=== PATIENT | female | born 1980 | race Caucasian/White ===

== ENCOUNTER → 2018-09-14 | Outpatient (CLI) | payer BC | END | disposition home or self-care (01) | LOC: LAB 07:18 | PROVIDERS: ATTEND Obstetrics & Gynecology Obstetrics | DX: O09.519 Supervision of elderly primigravida, unspecified trimester (principal); Z3A.00 Weeks of gestation of pregnancy not specified | CPT/HCPCS: 36415; 82947; 82950 ==

== ENCOUNTER 2018-12-08 13:10 | Observation (INO) | payer BC ==
[~2018-12-08] VITALS: Ht 154.9 cm; Wt 128.4 kg
[2018-12-08 14:46] LABS: BASOPHILS % 0.6 % (0.0-2.0); EOSINOPHILS % 1.6 % (0.0-5.0); HEMATOCRIT. 36.8 % (36.0-48.0); HEMOGLOBIN. 12.1 g/dL (12.0-16.0); LYMPHOCYTES % 33.5 % (20.0-50.0); MEAN CORPUSCULAR HEMOGLOBIN 25.5 pg (28.0-32.0); MEAN CORPUSCULAR VOLUME 77.5 fL (81.0-99.0); MEAN PLATELET VOLUME 9.4 fl (7.4-10.4); MONOCYTES % 6.1 % (2.0-8.0); NEUTROPHILS % 58.2 % (40.0-76.0); PLATELET 206 x1000/uL (130-400); RED BLOOD CELL COUNT 4.76 mill/uL (4.2-5.4); RED CELL DISTRIBUTION WIDTH 16.4 % (11.6-14.6)
[2018-12-08 14:50] LABS: CLARITY URINE CLEAR (CLEAR); COLOR URINE YELLOW (YELLOW); KETONES URINE NEGATIVE (NEGATIVE); LEUKOCYTE ESTERASE URINE 1+ (NEGATIVE); NITRITE URINE NEGATIVE (NEGATIVE); OCCULT BLOOD URINE NEGATIVE (NEGATIVE); PROTEIN URINE NEGATIVE (NEGATIVE); SPECIFIC GRAVITY URINE 1.016 (1.005-1.030); UROBILINOGEN URINE 0.2 E.U./dL (0.2-1.0)
[2018-12-08 14:52] LABS: CHLORIDE 107 mEq/L (98-107)
[2018-12-08 15:00] LABS: PARTIAL THROMBOPLASTIN TIME 26.5 sec (23.4-31.0); PROTHROMBIN TIME 10.3 sec (9.6-11.0)
== END 2018-12-08 16:45 | disposition home or self-care (01) ==
LOC: 8 EST LDRP 13:10
PROVIDERS: ADMIT Obstetrics & Gynecology Obstetrics; ATTEND Obstetrics & Gynecology Obstetrics
DX: O26.893 Other specified pregnancy related conditions, third trimester (principal); R51 Headache; M79.89 Other specified soft tissue disorders; Z3A.38 38 weeks gestation of pregnancy
CPT/HCPCS: 36415; 76805; 76818; 80053; 81003; 84550; 85025; 85384; 85610; 85730; 99281; G0378

== ENCOUNTER 2018-12-19 18:31 | Inpatient (IN) | payer BC ==
[~2018-12-19] VITALS: Ht 154.9 cm; Wt 128.4 kg
[2018-12-19] MEDS: LACTATED RINGERS 1,000 ML IV SCH ×2 (19:08→22:10)
[2018-12-19] MEDS ORDERED: NALOXONE HCL 0.4 MG/ML 1ML VIAL IM PRN (19:15)
[2018-12-19] MEDS ORDERED: BUTORPHANOL TARTRATE 2 MG/ML VIAL IV PRN (19:15)
[2018-12-19] MEDS ORDERED: LIDOCAINE HCL 1% 20ML VIAL (Pyxis) INJ INFIL SCH (19:15)
[2018-12-19] MEDS ORDERED: METHYLERGONOVINE MALEATE 0.2 MG/ML IM PRN (19:15)
[2018-12-19 20:39] LABS: BASOPHILS % 0.6 % (0.0-2.0); EOSINOPHILS % 2.1 % (0.0-5.0); HEMATOCRIT. 37.7 % (36.0-48.0); HEMOGLOBIN. 12.5 g/dL (12.0-16.0); LYMPHOCYTES % 23.7 % (20.0-50.0); MEAN CORPUSCULAR HEMOGLOBIN 25.7 pg (28.0-32.0); MEAN CORPUSCULAR VOLUME 77.4 fL (81.0-99.0); MEAN PLATELET VOLUME 9.4 fl (7.4-10.4); MONOCYTES % 5.3 % (2.0-8.0); NEUTROPHILS % 68.3 % (40.0-76.0); PLATELET 209 x1000/uL (130-400); RED BLOOD CELL COUNT 4.88 mill/uL (4.2-5.4); RED CELL DISTRIBUTION WIDTH 16.6 % (11.6-14.6)
[2018-12-19 20:48] LABS: PARTIAL THROMBOPLASTIN TIME 25.9 sec (23.4-31.0)
[2018-12-19 20:49] LABS: CLARITY URINE CLEAR (CLEAR); COLOR URINE YELLOW (YELLOW); KETONES URINE NEGATIVE (NEGATIVE); LEUKOCYTE ESTERASE URINE 1+ (NEGATIVE); NITRITE URINE NEGATIVE (NEGATIVE); OCCULT BLOOD URINE NEGATIVE (NEGATIVE); PH URINE 5.5 (4.5-8.0); PROTEIN URINE NEGATIVE (NEGATIVE); SPECIFIC GRAVITY URINE 1.012 (1.005-1.030); UROBILINOGEN URINE 0.2 E.U./dL (0.2-1.0)
[2018-12-19 21:05] LABS: *AMPHETAMINES SCREEN URINE NEGATIVE (NEGATIVE); *BARBITURATES SCREEN URINE NEGATIVE (NEGATIVE); *COCAINE SCREEN URINE NEGATIVE (NEGATIVE)
[2018-12-19 21:06] LABS: *BENZODIAZEPINES SCREEN URINE NEGATIVE (NEGATIVE); CANNABINOID URINE SCREEN NEGATIVE (NEGATIVE); METHADONE URINE SCREEN NEGATIVE (NEGATIVE); OPIATES URINE SCREEN NEGATIVE (NEGATIVE); PHENCYCLIDINE URINE SCREEN NEGATIVE (NEGATIVE)
[2018-12-19 21:26] LABS: HEPATITIS B SURFACE ANTIGEN NEGATIVE
[2018-12-20] MEDS: LACTATED RINGERS 1,000 ML IV SCH ×3 (05:44→21:27)
[2018-12-20] MEDS: DEXT 5%/LR + PITOCIN 20UNITS/L 1,000 ML IV SCH (11:45)
[2018-12-21] MEDS ORDERED: ROPIVACAINE HCL/PF EPIDURAL 200 ML EPI PRN (04:45)
[2018-12-21] MEDS ORDERED: ROPIVACAINE HCL 10MG/ML 20 ML VIAL EPI ONE (04:45)
[2018-12-21] MEDS ORDERED: ROPIVACAINE HCL/PF EPIDURAL 200 ML EPI SCH (05:15)
[2018-12-21] MEDS: LACTATED RINGERS 1,000 ML IV SCH ×2 (05:38→06:57)
[2018-12-21] MEDS ORDERED: HEMORRHOIDAL SUPP PR PRN (07:30)
[2018-12-21] MEDS ORDERED: BENZOCAINE/LANOLIN/ALOE VERA SPRAY TOP PRN (07:30)
[2018-12-21] MEDS ORDERED: MINERAL OIL 30ML BOTTLE PO NR (07:30)
[2018-12-21] MEDS ORDERED: LANOLIN OINT 7GM TUBE TOP PRN (07:30)
[2018-12-21] MEDS ORDERED: METHYLERGONOVINE MALEATE 0.2 MG/ML IM PRN (07:30)
[2018-12-21] MEDS ORDERED: GLYCERIN/WITCH HAZEL LEAF MEDICATED PAD TOP PRN (07:30)
[2018-12-21] MEDS: DEXT 5%/LR + PITOCIN 20UNITS/L 1,000 ML IV SCH (08:31)
[2018-12-21 10:00] VITALS: BP 115/65
[2018-12-21 10:30] VITALS: BP 114/68
[2018-12-21] MEDS: IBUPROFEN 800MG TABLET PO PRN (14:35)
[2018-12-21 16:00] VITALS: BP 113/66
[2018-12-21 19:30] VITALS: BP 128/68
[2018-12-21] MEDS: DOCUSATE SODIUM 100MG CAPSULE PO SCH (21:00)
[2018-12-21] MEDS: IBUPROFEN 400MG TABLET PO PRN (23:01)
[2018-12-22 04:00] VITALS: BP 116/70
[2018-12-22 07:08] LABS: BASOPHILS % 0.3 % (0.0-2.0); EOSINOPHILS % 2.5 % (0.0-5.0); HEMATOCRIT. 32.6 % (36.0-48.0); HEMOGLOBIN. 10.8 g/dL (12.0-16.0); LYMPHOCYTES % 26.3 % (20.0-50.0); MEAN CORPUSCULAR HEMOGLOBIN 25.6 pg (28.0-32.0); MEAN CORPUSCULAR VOLUME 77.3 fL (81.0-99.0); MEAN PLATELET VOLUME 9.7 fl (7.4-10.4); MONOCYTES % 4.1 % (2.0-8.0); NEUTROPHILS % 66.8 % (40.0-76.0); PLATELET 164 x1000/uL (130-400); RED BLOOD CELL COUNT 4.22 mill/uL (4.2-5.4); RED CELL DISTRIBUTION WIDTH 17.3 % (11.6-14.6)
[2018-12-22 08:33] VITALS: BP 111/72
[2018-12-22] MEDS: IBUPROFEN 800MG TABLET PO PRN (08:40)
[2018-12-22] MEDS ORDERED: PRENATAL VIT/FE FUMARATE/FA TABLET PO SCH (09:00)
[2018-12-22 16:29] VITALS: BP 125/73
[2018-12-22] MEDS: DOCUSATE SODIUM 100MG CAPSULE PO SCH (20:58)
[2018-12-22] MEDS: IBUPROFEN 400MG TABLET PO PRN (20:59)
[2018-12-22 22:00] VITALS: BP 128/79
[2018-12-23 06:00] VITALS: BP 119/75
[2018-12-23] MEDS ORDERED: TETANUS, DIPHTHERIA, PERTUSSIS VAC/PF 0.5ML (>7YR OLD) IM ONE (06:00)
[2018-12-23 09:30] VITALS: BP 121/70
== END 2018-12-23 13:20 | disposition home or self-care (01) | DRG 807 ==
LOC: OBSVTOIN 18:31 → 8 EST LDRP 18:31 → 8EST 12-21 10:02
PROVIDERS: ADMIT Obstetrics & Gynecology Obstetrics; ATTEND Obstetrics & Gynecology Obstetrics
PROC: 0U7C7ZZ Dilation of Cervix, Via Natural or Artificial Opening (ICD-10-PCS; 2018-12-19)
PROC: 10E0XZZ Delivery of Products of Conception, External Approach (ICD-10-PCS; principal; 2018-12-21)
PROC: 3E0R3BZ Introduction of Anesthetic Agent into Spinal Canal, Percutaneous Approach (ICD-10-PCS; 2018-12-21)
PROC: 00HU33Z Insertion of Infusion Device into Spinal Canal, Percutaneous Approach (ICD-10-PCS; 2018-12-21)
DX: O41.03X0 Oligohydramnios, third trimester, not applicable or unspecified (principal); Z37.0 Single live birth; Z3A.39 39 weeks gestation of pregnancy
CPT/HCPCS: 36415; 76805; 76818; 80305; 81003; 86592; 86703; 86762; 86850; 86900; 87340; 90715; G0378; J0595; J2590; J2795